=== PATIENT | male | born 1980 | race African-American/Black ===

== ENCOUNTER 2020-06-03 12:52 | Emergency (ER) | payer OTHER ==
[~2020-06-03] VITALS: Ht 190.5 cm; Wt 103.4 kg
[2020-06-03 15:05] VITALS: BP 146/96
== END 2020-06-03 15:05 | disposition home or self-care (01) ==
LOC: ED 12:52
DX: S13.9XXA Sprain of joints and ligaments of unspecified parts of neck, initial encounter (principal); S39.012A Strain of muscle, fascia and tendon of lower back, initial encounter; V49.9XXA Car occupant (driver) (passenger) injured in unspecified traffic accident, initial encounter; Y93.I9 Activity, other involving external motion; Y92.413 State road as the place of occurrence of the external cause; Y99.8 Other external cause status